=== PATIENT | female | born 1965 ===

== ENCOUNTER → 2019-11-24 | Outpatient (CLI) | payer OTHER ==
[~2019-11-24] VITALS: Ht 160 cm; Wt 70.3 kg
[~2019-11-24] MED LIST: ADDERALL 10 MG10 MG PO; AMBI TOP; BUPROPION XL150 MG PO; EYE DROP TEARS15 ML EA. EYE; FLORANEX TABLE1 EACH PO; IBUPROFEN 800800 M1 PO; IRON 100 PLUS1 EACH PO; MUCUS RELIEF400 MG PO; PAIN RELIEVING TOP; PEPCID20 MG PO; VALACYCLOVIR500 MG PO
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
[2019-11-24 14:23] VITALS: BP 114/72
--- NOTE | 2019-11-24 15:04 | NUR ---
Pain Clinic Assessment: 1. History of Osteoarthritis: SPINE History of Rheumatoid Arthritis: 2. Height: 5 ft. 3 in. 160.0 cm. Weight: 155.0 lb. oz. 70.308 kg. Patient's BMI: 27.5 3. Vital Signs: BP: 114/72 Pulse: 76 Resp: 14 Temp: 02 Sat: 96 ECG Mon: 4. Pain Intensity: 8-10 5. Fall Risk: Dizziness: Y Needs help standing or walking: N Fallen in the last 3 months: Y Fall risk comments: 6. Patient on Blood Thinner: None 7. History of Hypertension: N 8. Opioid Therapy greater than 6 weeks: N Opiate Contract Signed: 9. Risk Assessment Tool Provided: 6-MODERATE RISK 10. Functional Assessment Tool: 54/70 11. Recreational Drug Use: Never Drug Type: Tobacco Use: Never Smoker Tobacco Type: Amount or Packs/day: How Many Years: Alcohol Use: Past use Frequency: Quant:
== END ==
LOC: PAIN 06:53
PROVIDERS: ATTEND Anesthesiology Pain Medicine
DX: M54.12 Radiculopathy, cervical region (principal); K21.9 Gastro-esophageal reflux disease without esophagitis; M19.90 Unspecified osteoarthritis, unspecified site; Z68.27 Body mass index [BMI] 27.0-27.9, adult; Z79.899 Other long term (current) drug therapy

== ENCOUNTER → 2019-12-08 | Outpatient (CLI) | payer OTHER ==
[~2019-12-08] VITALS: Ht 160 cm; Wt 76.0 kg
[~2019-12-08] MED LIST changes: +HYDROCODON-ACE1 EAC7 PO
--- NOTE | ~2019-12-08 | HPC ---
[facility] [place] [address] PAIN MANAGEMENT CONSULTATION Name: KATHERINE HAYWARD Room #: REG FLORIN BarriosLaniJosette.#: [id number] Admission: 12/08/19 Attend Phys: Yossi Dominguez MD Discharge: Date of : 61 Report #: [id number] THIS REPORT FOR: cc: Nubia Vazquez MD, Mohd I. MD Morgan, Richard L. MD ~ CC: Nubia Dominguez DATE OF SERVICE: 12/08/2019 Followup visit for cervical radiculopathy. The patient returns to pain clinic today for an epidural injection. She was seen last on 11/24/2019 for initial consultation. We reviewed in some detail the procedure. She has disk protrusion at C3-C4, but also resulting changes of the spondylitic breakdown has resulted in central stenosis at C6-C7 with varying degrees of foraminal narrowing throughout the cervical spine. Cervical epidural injection was reviewed in some detail again with her today. Potential risks and benefits identified. She has agreed to proceed and was taken to fluoroscopic suite for treatment. IMPRESSION: Cervical radiculopathy with pain. PROCEDURE: After informed consent, she was taken to fluoroscopic suite, placed prone, skin prepped with ChloraPrep. Skin anesthetized over the C6-C7 interspace. A 20-gauge Tuohy epidural needle advanced into the epidural space in the first attempt using loss of resistance. There was no blood or CSF aspirated. A 1 mL of Omnipaque injected and excellent spread of dye observed within the epidural space followed then by 3 mL of 0.5% lidocaine mixed with 80 mg of triamcinolone. She tolerated the procedure well and there were no complications. She was taken to recovery room for observation and discharged shortly thereafter. Followup visit planned in 1 month. By: [id number] Yossi Dominguez MD /nt
[2019-12-08 14:59] VITALS: BP 113/69
--- NOTE | 2019-12-08 15:06 | NUR ---
Pain Clinic Assessment: 1. History of Osteoarthritis: SPINE History of Rheumatoid Arthritis: 2. Height: 5 ft. 3 in. 160.0 cm. Weight: 167.6 lb. oz. 76.023 kg. Patient's BMI: 29.7 3. Vital Signs: BP: 113/69 Pulse: 86 Resp: 16 Temp: 02 Sat: 96 ECG Mon: 4. Pain Intensity: 8 AVG 5. Fall Risk: Dizziness: Y Needs help standing or walking: N Fallen in the last 3 months: N Fall risk comments: 6. Patient on Blood Thinner: None 7. History of Hypertension: N 8. Opioid Therapy greater than 6 weeks: N Opiate Contract Signed: 9. Risk Assessment Tool Provided: 6-MODERATE RISK 10. Functional Assessment Tool: 54/70 11. Recreational Drug Use: Never Drug Type: Tobacco Use: Never Smoker Tobacco Type: Amount or Packs/day: How Many Years: Alcohol Use: Past use Frequency: Quant:
== END ==
LOC: PAIN 06:53
PROVIDERS: ATTEND Anesthesiology Pain Medicine
DX: M54.12 Radiculopathy, cervical region (principal); Z79.899 Other long term (current) drug therapy

== ENCOUNTER → 2020-02-23 | Outpatient (CLI) | payer OTHER ==
[~2020-02-23] VITALS: Ht 160 cm; Wt 73.0 kg
[2020-02-23 14:01] VITALS: BP 126/67
== END | disposition home or self-care (01) ==
LOC: PAIN 01-09 07:09
PROVIDERS: ATTEND Anesthesiology Pain Medicine
DX: M54.12 Radiculopathy, cervical region (principal); G89.29 Other chronic pain; Z98.890 Other specified postprocedural states; Z79.899 Other long term (current) drug therapy

== ENCOUNTER → 2020-04-26 | Outpatient (CLI) | payer OTHER, BC ==
[~2020-04-26] VITALS: Ht 160 cm; Wt 72.8 kg
[~2020-04-26] MED LIST changes: +METFORMIN HCL500 M3 PO; +ROSUVASTATIN CA10 MG PO; -VALACYCLOVIR500 MG PO; +VALTREX1000 MG PO
[2020-04-26 09:45] VITALS: BP 113/61
--- NOTE | 2020-04-26 10:15 | NUR ---
Pain Clinic Assessment: 1. History of Osteoarthritis: SPINE History of Rheumatoid Arthritis: Not Applicable 2. Height: 5 ft. 3 in. 160.0 cm. Weight: 160.4 lb. oz. 72.757 kg. Patient's BMI: 28.4 3. Vital Signs: BP: 113/61 Pulse: 90 Resp: 16 Temp: 02 Sat: 96 ECG Mon: 4. Pain Intensity: 8 5. Fall Risk: Dizziness: Y Needs help standing or walking: N Fallen in the last 3 months: N Fall risk comments: 6. Patient on Blood Thinner: None 7. History of Hypertension: N 8. Opioid Therapy greater than 6 weeks: N Opiate Contract Signed: 9. Risk Assessment Tool Provided: 6-MODERATE RISK 10. Functional Assessment Tool: 57/70 11. Recreational Drug Use: Never Drug Type: Tobacco Use: Never Smoker Tobacco Type: Amount or Packs/day: How Many Years: Alcohol Use: Past use Frequency: Quant:
== END | disposition home or self-care (01) ==
LOC: PAIN 06:49
PROVIDERS: ATTEND Anesthesiology Pain Medicine
DX: M54.12 Radiculopathy, cervical region (principal); G89.29 Other chronic pain; Z98.890 Other specified postprocedural states; Z79.899 Other long term (current) drug therapy; Z79.891 Long term (current) use of opiate analgesic